=== PATIENT | male | born 2000 | race Caucasian/White ===

== ENCOUNTER 2022-07-24 10:16 | Emergency (ER) | payer OTHER, SELFPAY ==
--- NOTE | 2022-07-24 10:18 | ED.URI ---
HPI - URI/Sore Throat General Chief Complaint: Ear Stated Complaint: Ear Problem Time Seen by Provider: 07/24/22 10:19 Source: patient and RN notes reviewed History of Present Illness HPI Narrative: Patient is a 21-year-old male who presents to urgent care with complaints of bilateral ear pain for the last few days. Patient states that he had COVID recently but has not had any recent fevers in the last 24 hours. Patient has been using Mucinex and Tylenol. No other acute complaints. No acute distress noted. Patient aware of the plan of care. Some parts of this dictation were generated by voice recognition software and may contain typographical and/or grammatical inaccuracies. Related Data Home Medications Medication Instructions Recorded Confirmed ergocalciferol (vitamin D2) 1,250 50,000 unit PO WEEKLY 07/24/22 07/24/22 mcg (50,000 unit) capsule guanfacine 1 mg tablet 1 mg PO TID 07/24/22 07/24/22 methylphenidate HCl 36 mg 36 mg PO DAILY 07/24/22 07/24/22 tablet,extended release 24 hr (Concerta) Allergies Allergy/AdvReac Type Severity Reaction Status Date / Time No Known Allergies Allergy Verified 07/24/22 10:30 Review of Systems Review of Systems: CONSTITUTIONAL: Denies fever, chills, or sweats. EYES: Denies visual changes, redness, or discharge. ENT: Denies rhinorrhea, congestion, sore throat . Reports bilateral otalgia CARDIOVASCULAR: Denies chest pain, palpitations, or edema. RESPIRATORY: Denies cough or dyspnea. GASTROINTESTINAL: Denies abdominal pain, nausea, vomiting, or diarrhea. GENITOURINARY: Denies dysuria or hematuria. SKIN: Denies rash or itching. MUSCULOSKELETAL: Denies back pain, joint pain, or myalgia. NEUROLOGIC: Denies headache, numbness, or weakness. All other systems reviewed are negative, except as documented in HPI. PMFSH Comments At the time of my signature, I reviewed and agree with the nursing past medical, surgical, social, and family history. There is no relevant family history pertinent to the patient complaint. Exam Narrative: GENERAL: This is a well-nourished, well-developed patient, in no apparent distress. HEAD: normocephalic, atraumatic. EYES: PERRL. Sclera clear/white. Vision is grossly intact. EARS: External ears normal, auditory canals clear and without drainage, moderate bilateral eustachian tube dysfunction.TMs normal without perforation. Hearing grossly intact. NOSE: External nose normal with no obvious nasal discharge, nares without redness, no rhinorrhea. THROAT: Mucous membranes moist, posterior pharynx clear. NECK: Neck supple CARDIOVASCULAR: Regular rate and rhythm without murmurs, gallops, or rubs. RESPIRATORY: Clear to auscultation. Breath sounds equal bilaterally. No wheezes, rales, or rhonchi. SKIN: warm, intact with no suspicious lesions or rash, good texture and turgor. NEURO: awake, alert, and oriented to person, place and time. There were no obvious focal neurologic abnormalities. EXTREMITIES: No clubbing, cyanosis, or edema. Course Course Level of Care: Express Care Visit Vital Signs Vital signs: Vital Signs Temperature 97.7 F 07/24/22 10:27 Pulse Rate 93 07/24/22 10:27 Respiratory Rate 16 07/24/22 10:27 Blood Pressure 151/82 H 07/24/22 10:27 Pulse Oximetry 98 07/24/22 10:27 Temperature 97.7 F 07/24/22 10:27 Pulse Rate 93 07/24/22 10:27 Respiratory Rate 16 07/24/22 10:27 Blood Pressure 151/82 H 07/24/22 10:27 Pulse Oximetry 98 07/24/22 10:27 Reviewed- Patient is informed that they may have pre-hypertension or hypertension based on a blood pressure reading in the department. I recommend the patient call the primary care provider listed on their discharge instructions or a physician of their choice this week to arrange follow-up for further evaluation of possible pre-hypertension or hypertension. MDM - URI/Sore Throat MDM Narrative Medical decision making narrative: advised patient to complete
[2022-07-24 10:27] VITALS: BP 151/82; PULSE 93; RESP 16; TEMP 36.5; O2SAT 98
== END 2022-07-24 10:45 | disposition home or self-care (01) ==
PROVIDERS: Emergency Provider Nurse Practitioner Family; PCP Nurse Practitioner Family
DX: H69.83 Other specified disorders of Eustachian tube, bilateral (principal); F98.8 Other specified behavioral and emotional disorders with onset usually occurring in childhood and adolescence
CPT/HCPCS: 99203; G0463

== ENCOUNTER 2023-03-17 18:59 | Emergency (ER) | payer OTHER, SELFPAY ==
[2023-03-17 19:04] VITALS: BP 142/76; PULSE 85; RESP 20; TEMP 36.3; O2SAT 95
--- NOTE | 2023-03-17 19:06 | ED.LOWEXIN ---
HPI - Extremity Injury (Lower) General Chief Complaint: Extremity Injury, Lower Stated Complaint: Fall Injury/Toe Injury Time Seen by Provider: 03/17/23 19:07 Source: patient Mode of arrival: ambulatory Limitations: no limitations History of Present Illness HPI Narrative: 22y/o male presented for c/o left 2nd toenail injury 4 days ago. State he stubbed the toe on the shower and wants to know how to treat the loose nail. Also reports some 'white gunk' under the nail. Denies swelling, redness, or fever. Not taking anything for pain. Has been keeping it covered while at work. Related Data Home Medications Medication Instructions Recorded Confirmed guanfacine 1 mg tablet 1 mg PO TID 07/24/22 07/24/22 methylphenidate HCl 36 mg 36 mg PO DAILY 07/24/22 07/24/22 tablet,extended release 24 hr (Concerta) Allergies Allergy/AdvReac Type Severity Reaction Status Date / Time No Known Allergies Allergy Verified 07/24/22 10:30 Review of Systems Review of Systems: CONSTITUTIONAL: Denies body aches, fever, chills EYES: Denies visual changes ENT: Denies rhinorrhea, congestion CARDIOVASCULAR: Denies chest pain, palpitations, or edema. RESPIRATORY: Denies cough or dyspnea. GASTROINTESTINAL: Denies abdominal pain, nausea, vomiting, or diarrhea. SKIN: Denies rash, itching, or wounds. MUSCULOSKELETAL: Reports loose toenail Denies back pain, joint pain, or myalgia. NEUROLOGIC: Denies headache, numbness, tingling, or weakness. PSYCH: Denies depression or anxiety. All systems reviewed & are unremarkable except as noted in HPI and below PMFSH Past Medical History Medical History (Updated 03/17/23 @ 19:18 by Nidhi Espinosa, ZEINA) No pertinent past medical history Comments At time of signature, I have reviewed and agree with nursing past medical, surgical, social and family history unless otherwise noted. Please see nursing chart for further information. There is no relevant family history pertinent to the presenting complaint Exam Narrative: GENERAL: Well-appearing HEAD: Normocephalic, atraumatic. CHEST: Speaks in full sentences. No respiratory distress. HEART: Regular rate and rhythm. Normal and equal peripheral pulses. EXTREMITIES: Left 2nd toe with slightly loose nail, mostly intact on nailbed. No bleeding or subungual hematoma. Mild onychomycosis. No ingrown nail. Left foot has normal strength and sensation, normal range of motion. No swelling, induration, paronychia, or ecchymosis, No point tenderness to toe. No open wounds, or obvious deformity; alignment normal, pulse palpable and equal bilaterally, skin warm, dry, pink. Capillary refill less than 3 seconds. SKIN: Warm, dry, no rash. NEURO: Alert and oriented x3. PSYCH: Normal mood and affect Course Course Emergency Course: Patient is aware of diagnosis, understands and agrees to treatment plan. Anticipatory guidance given. Patient agrees to follow-up as directed and is aware of reasons to seek care at the emergency department. Portions of this record may have been created with voice recognition software Level of Care: Express Care Visit Vital Signs Vital signs: Reviewed MDM - Extremity Injury (Lower) MDM Narrative Medical decision making narrative: Patient presented requesting information on care for the loose toenail. He is keeping it covered with a Band-Aid and using Neosporin and appears to be taking good care of the site. No apparent signs of infection. Discussed physical exam findings. Advised supportive measures and signs/symptoms to go to the ER. Pt is appropriate for outpt treatment and f/u. Differential Diagnosis Differential diagnosis: Likely fracture of toe and other (ingrown nail, paronychia, loose nail, nail avulsion) Discharge Plan Discharge Clinical Impression: Loose toenail Patient Disposition: Home, Self-Care Condition: Stable Instructions: Nail Avulsion (ED) Additional Instructions: Keep the area rosario
== END 2023-03-17 19:20 | disposition home or self-care (01) ==
PROVIDERS: Emergency Provider Nurse Practitioner Family
DX: L60.8 Other nail disorders (principal)
CPT/HCPCS: 99211; G0463

== ENCOUNTER 2025-01-06 09:47 | Emergency (ER) | payer OTHER, SELFPAY ==
--- NOTE | ~2025-01-06 | XR_ITS ---
EXAMINATION: XR ribs RT 2V DATE: 01/06/2025 10:25 INDICATION: Lateral right lower rib pain after coughing fits with pop one day prior. TECHNIQUE: 3 views of the right ribs were obtained. COMPARISON: None FINDINGS: Mildly displaced posterolateral right ninth rib fracture. Right lung is clear with no airspace opacit ies, pulmonary edema, pleural effusion or pneumothorax. Visualized portion of the cardiomediastinal s ilhouette is unremarkable. IMPRESSION: 1. Mildly displaced posterolateral right ninth rib fracture. No pneumothorax or other acute cardiopul monary disease in the right hemithorax. Reviewed, dictated and finalized at location A. IMPRESSION: 1. Mildly displaced posterolateral right ninth rib fracture. No pneumothorax or other acute cardiopulmonary disease in the right hemithorax.
--- OUTSIDE RECORDS SUMMARY | 2025-01-06 09:53 | XMS_ITS | Referral Summary ---
Author Organization [facility] Address [address] [place] [address] Care Team Providers Care Brick Tester Name Role Phone Sean Rubin MD Primary Care Provider Allergies No known active allergies Medications ibuprofen (ibuprofen) 200 mg tab/cap take 1 capsule by oral route every 6 hours as needed 0 0 7 Active Additional Information Patient not taking.Informant: Self, Reported on 11/27/2022 cholecalciferol (VITAMIN D-3) 5,000 unit tabletIndicatio ns:Vitamin D Deficiency,sund ays Take 5,000 Units by mouth once a week. Active oxyCODONE (ROXICODONE) 5 mg immediate release tabletIndicatio ns:Pain Take 1 tablet (5 mg total) by mouth every 4 (four) hours as needed for pain. 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 Schedule with Dr. Hernandez. Addendum: Scheduled 06/23. 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 Gender Identity Not on file Sexual Orientation Not on file Last Filed Vital Signs Vital Sign Reading Time Taken Comments Blood Pressure 138/80 05/01/2021 2:47 PM CDT Pulse 84 05/01/2021 2:47 PM CDT Temperature 36.9 C (98.4 F) 05/01/2021 2:47 PM CDT Respiratory Rate 15 05/01/2021 2:47 PM CDT Oxygen Saturation 96% 05/01/2021 2:47 PM CDT Inhaled Oxygen Concentration - - Weight 183.7 kg (405 lb) 05/01/2021 2:47 PM CDT Height 194.3 cm (6' 4.5) 05/01/2021 2:47 PM CDT Body Mass Index 48.66 05/01/2021 2:47 PM CDT Plan of Treatment Not on file Insurance [facility] MEDICAID [facility] [id number] [place] [address] MEDICAID [facility] MEDICAID Care Teams Brick Tester Relationship Specialty Start Date End Date Sean Rubin MD PCP - General 10/24/16
--- OUTSIDE RECORDS SUMMARY | 2025-01-06 09:53 | XMS_ITS | Clinical Summary ---
Author Organization [facility] Address [address] [place] [address] Care Team Providers Care Utility Service Worker Name Role Phone Sean Rubin MD Primary Care Provider [phone] Source Comments [facility] Affiliates and Associated Physician Practices is amultiple site organization consisting of ambulatory clinics and hospital sitesin [place], [place] and [place]. This disclosure is being madepursuant to the Care Everywhere program and may not contain all information available regarding this patient. Last updated 18.[facility] Allergies No known active allergies Medications * Be aware that medications may not be up to date on this document. Alwaysverify current medications with the patient. 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 Gender Identity Not on file Sexual Orientation Not on file Last Filed Vital Signs Vital Sign Reading Time Taken Comments Blood Pressure - - Pulse - - Temperature - - Respiratory Rate - - Oxygen Saturation - - Inhaled Oxygen Concentration - - Weight 145.2 kg (320 lb 1.7 oz) 03/18/2016 1:17 PM CDT Height 185.7 cm (6' 1.11) 03/18/2016 1:17 PM CD T Body Mass Index 42.11 03/18/2016 1:17 PM CDT Plan of Treatment Health Maintenance Due Date Last Done Comments HIV SCREENING 2014 HPV VACCINE (1 - Male 3-dose series) 2014 HEPATITIS C SCREENING 09/07/2017 DTAP/TDAP/TD VACCINES (1 - Tdap) 2018 HEPATITIS B VACCINE (1 of 3 - 19+ 3-dose series) 2018 COVID-19 VACCINE (1 - 2023-2 5 season) 2024 DEPRESSION SCREENING 07/27/2024 INFLUENZA VACCINE (Season Ended) 2025 ZOSTER VACCINE (1 of 2) 2049 HIB VACCINE Aged Out No longer eligi ble based on patient's age to complete this topic MENINGOCOCCAL (Group B) VACC INE SHARED DECISION-MAKING Aged Out No longer eligibl e based on patient's age to complete this topic MENINGOCOCCAL GROUPS A/C/Y/W VACCINE Aged Out No longer eligible b ased on patient's age to complete this topic PNEUMOCOCCAL VACCINE Aged Out No long er eligible based on patient's age [place] [address] Care Teams Utility Service Worker Relationship Specialty Start Date End Date Sean Rubin MD [address] [place], [place] [id number] PCP - General 06/17/11
--- OUTSIDE RECORDS SUMMARY | 2025-01-06 09:53 | XMS_ITS | Continuity of Care Document ---
Author Organization [facility] Address [address] [place] [address] Phone Care Team Providers Care Compounding Technician Name Role Phone Conversion MD, Doctor Unavailable Unavailabl e Medications Medication Instructions Dosage Effective Dates (start - stop) Status Comments SODIUM CHLORIDE 0.45% ML 0 DIRECTE - Active 2cc w/.5cc albuterol solution q4hrs prn cough/wheeze ALBUTEROL SULFATE 5MG/ML ML .5 Q 4HR - Active AMOXICILLIN 250MG/5ML ML 7.5 BID - No Longer Active CEFZIL 250MG/5ML ML 5 BID No Longer Active Advance Directives Directive Yes / No Effective Date File Name No Information Encounters Encounter Description Practice Location Reason(s) For Visit Diagnoses Date Provider Providers Copied on Encounter [facility], [address], [place], [place], [address], tel:[phone] Conversion Department No Information 1 Conversion Doctor. [facility] [place], [address], . [facility], [address], [place], [place], [address], tel:[phone] [facility] ASTHMA NOS W (AC) [address]. [address], [address], [place], [place], [address], [place]. tel:[phone] [place], [address], [place], [place], [address], tel:[phone] [facility] ALLERGIC RHINITIS NOS [address] Kashif Martinez. [address] [facility] [address], [place], [place], [address], [place]. tel:[phone] [facility], [address], [place], [place], [address], [place] tel:[phone] [facility] ASTHMA NOS [address]. [address], [address], [place], [place], [address], [place]. tel:[phone] Family History Family Member Type Diagnosis Age At Onset No Information Payers Payer name Insurance type Covered constitution party ID Authoriza tion(s) No Information Social History Type Description Quantity Date Captured Comments Sex Male Smoking Status No Information Chief Complaint And Reason For Visit No Information Reason For Referral Reason For Referral No Information History Of Present Illness Encounter Date Complaint History Of Prese nt Illness No Information Functional Status Date Functional Assessmen t No Information Instructions Date Instruction Additional Infor mation No Information Assessments Type Assessment Date No Information Patient Care Teams Name Effective Dates (start - stop) Status Members No Information
--- OUTSIDE RECORDS SUMMARY | 2025-01-06 09:53 | XMS_ITS | Clinical Summary ---
Author Organization [facility] Address [address] [place] [address] Phone Care Team Providers Care Repair Manager Name Role Phone Gricel Lagunas APRMEDINA Lainez Primary Care Provider [phone] Medications Hydrocort-Pramo xine, Perianal, (Proctofoam HC) 1-1 % Foam 1 Applicator by Rectal route every 12 hours. 50 g Active Social History Tobacco Use Types Packs/Day Years Used Date Smoking Tobacco: Never Smokeless Tobacco: Former Tobacco Cessation:Counseling Given: Not Answered Sex and Gender Information Value Date Recorded Sex Assigned at Not on file Legal Sex Male 11:28 PM CDT Gender Identity Not on file Sexual Orientation Not on file Last Filed Vital Signs Vital Sign Reading Time Taken Comments Blood Pressure 197/85 06/09/2024 5:16 PM GRADUATE RESEARCH ASSISTANT Pulse 62 06/09/2024 5:16 PM GRADUATE RESEARCH ASSISTANT Temperature 36.7 C (98 F) 06/09/2024 5:16 PM GRADUATE RESEARCH ASSISTANT Respiratory Rate 17 06/09/2024 5:16 PM GRADUATE RESEARCH ASSISTANT Oxygen Saturation 98% 06/09/2024 5:16 PM GRADUATE RESEARCH ASSISTANT Inhaled Oxygen Concentration - - Weight 158.8 kg (350 lb) 06/09/2024 5:03 PM GRADUATE RESEARCH ASSISTANT Height 188 cm (6' 2) 06/09/2024 5:03 PM GRADUATE RESEARCH ASSISTANT Body Mass Index 44.94 06/09/2024 5:03 PM GRADUATE RESEARCH ASSISTANT Plan of Treatment Not on [place] [address] [place] [address] Care Teams Repair Manager Relationship Specialty Start Date End Date Lagunas, ZEINA Monsalve, MEDINA [address] [place] [address] PCP - General Family Medicine 06/09/24
--- OUTSIDE RECORDS SUMMARY | 2025-01-06 09:53 | XMS_ITS | Clinical Summary ---
Author Organization [facility] Address [address] [place] [address] Care Team Providers Care Jeep Mechanic Name Role Phone Sean Rubin MD Primary [...] Schedule with Dr. Hernandez. Addendum: Scheduled 06/23. 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 2004 Tooth impaction 05/25/2018 wisdom teeth Obesity Adhd Obstructive sleep apnea 05/25/2018 has not been retested since having tonsills and adenoids removed- no longer snores Family History Medical History Relation Name Comments lupus anticoagulant Mother Relation Name Status Comments Mother Alive Social History Tobacco Use Types Packs/Day Years Used Date Smoking Tobacco: Never Smokeless Tobacco: Never Alcohol Use Standard Drinks/Week Comments No 0 (1 standard drink = 0.6 oz pur e alcohol) Sex and Gender Information Value Date Recorded Sex Assigned at Not on file 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 Gender Identity Not on file Sexual Orientation Not on file Obstetrics History Last Filed Vital Signs Vital Sign Reading [...] 05/01/2021 2:47 PM CDT Plan of Treatment Health Maintenance Due Date Last Done Comments Depression Screening 1999 Hepatitis C Screening 1999 Regular Well Visit/Exam 18-64 2017 DTaP/Tdap/Td Vaccine (7 - Td or Tdap) 09/28/2019 09/27/2009, 07/13/2004, 09/13/2003, Additional history exists Influenza Vaccine (Season Ended) 2025 05/25/2012, 05/14/2010, 04/18/2009 Hepatitis B Screening Completed 04/01/2000 , 1999, 1999 Pneumococcal vaccine <65 Completed 001, 04/01/2000, 01/10/2000 Varicella Vaccines Completed 09/21/2006, 09/29/2000 HPV Vaccines Completed 02/23/2017, 11/0 12/2013, 01/25/2014 Insurance [facility] MEDICAID [facility] MEDICAID [facility] [address] MEDICAID Care Teams Jeep Mechanic Relationship Specialty Start Date End Date Sean Rubin MD PCP - General 10/24/16
[2025-01-06 09:55] VITALS: BP 155/75; PULSE 83; RESP 16; TEMP 36.4; O2SAT 99
--- OUTSIDE RECORDS SUMMARY | 2025-01-06 09:58 | XMS_ITS | Continuity of Care Document ---
Author Organization [facility] Address [address] [place] [address] Phone Care Team Providers Care Dependency Director Name Role Phone Conversion MD, Doctor Unavailable [...] Diagnoses Date Provider Providers Copied on Encounter [facility], [address], [place], [place], [address], tel:[phone] Conversion Department No Information 1 Conversion Doctor. [facility] [place], [address], . [facility], [address], [place], [place], [address], tel:[phone] [facility] ASTHMA NOS W (AC) [address]. [address], [address], [place], [place], [address], [place]. tel:[phone] [employer], [address], [place], [place], [address], tel:[phone] [facility] ALLERGIC RHINITIS NOS [address] Kashif Martinez. [address] [facility] [facility] [address], [place], [place], [address], [place]. tel:[phone] [facility], [address], [place], [place], [address], [place] tel:[phone] [facility] ASTHMA NOS [address]. [address] [facility] [address] [facility], [address], [place], [place], [address], [place]. tel:[phone] Family History Family Member Type Diagnosis Age At Onset No Information Payers Payer name Insurance type Covered green party ID Authoriza tion(s) No Information Social [...]
--- NOTE | 2025-01-06 10:16 | ED.URI ---
HPI - URI/Sore Throat General Chief Complaint: Upper Respiratory Infection Stated Complaint: Cough/Rib Pain/Hurts to Breath Time Seen by Provider: 01/06/25 10:10 Source: patient and RN notes reviewed Mode of arrival: ambulatory Limitations: no limitations History of Present Illness HPI Narrative: Patient presents today complaining of right lower rib pain. He was diagnosed with bronchitis 2 days ago at his PCPs office and got started on azithromycin and a Medrol Dosepak. Yesterday he coughed and felt a pop in his ribs followed by sudden severe pain. He has tried Tylenol and ibuprofen without relief and currently rates his pain 10/10. Reports the rib pain prevented him from sleeping last night. Related Data Home Medications ?Medication ?Instructions ?Recorded ?Confirmed ?Last Taken ?Type guanfacine 1 mg tablet 1 mg PO TID 07/24/22 07/24/22 Unknown History azithromycin 250 mg tablet mg 01/06/25 Unknown History fluoxetine 40 mg capsule mg 01/06/25 Unknown History methylphenidate HCl 18 mg mg PO 01/06/25 Unknown History tablet,extended release 24 hr methylphenidate HCl 27 mg mg PO 01/06/25 Unknown History tablet,extended release 24 hr methylprednisolone 4 mg tablets in mg 01/06/25 Unknown History a dose pack Allergies Allergy/AdvReac Type Severity Reaction Status Date / Time No Known Allergies Allergy Verified 01/06/25 09:58 Review of Systems Review of Systems: CONSTITUTIONAL: Denies body aches, fever, chills, or sweats. EYES: Denies visual changes, redness, or discharge. ENT: Denies rhinorrhea, congestion, sore throat, or otalgia. CARDIOVASCULAR: Denies chest pain, palpitations, or edema. RESPIRATORY: Denies cough or dyspnea. + right rib pain GASTROINTESTINAL: Denies abdominal pain, nausea, vomiting, or diarrhea. GENITOURINARY: Denies dysuria or hematuria. SKIN: Denies rash, itching, or wounds. MUSCULOSKELETAL: Denies back pain, joint pain, or myalgia. NEUROLOGIC: Denies headache, numbness, tingling, or weakness. PSYCH: Denies depression or anxiety. [facility] Past Medical History Medical History No pertinent past medical history Comments At time of signature, I have reviewed and agree with nursing past medical, surgical, social and family history unless otherwise noted. Please see nursing chart for further information. There is no relevant family history pertinent to the presenting complaint Exam Narrative: GENERAL: Well-appearing, well-nourished, and in no acute distress. HEAD: Normocephalic, atraumatic. EYES: EOMI. No redness or drainage. Conjunctivae normal. ENT: Mucous membranes pink and moist. NECK: Normal AROM. CHEST: No respiratory distress. Clear to auscultation. Tenderness the right lateral lower ribs without crepitus, step-off, or other abnormalities. HEART: Regular rate and rhythm. No murmur appreciated. EXTREMITIES: Normal range of motion. No edema. SKIN: Warm, dry, no rash. Capillary refill normal. Normal skin turgor. NEURO: No focal deficits. Alert and oriented x3. Gait steady. PSYCH: Normal affect. No signs of depression or anxiety. Course Course Level of Care: Express Care Visit Vital Signs Vital signs: Vital Signs Temperature 97.5 F L 01/06/25 09:55 Pulse Rate 83 01/06/25 09:55 Respiratory Rate 16 01/06/25 09:55 Blood Pressure 155/75 H 01/06/25 09:55 Pulse Oximetry 99 01/06/25 09:55 Oxygen Delivery Room Air 01/06/25 09:55 Temperature 97.5 F L 01/06/25 09:55 Pulse Rate 83 01/06/25 09:55 Respiratory Rate 16 01/06/25 09:55 Blood Pressure 155/75 H 01/06/25 09:55 Pulse Oximetry 99 01/06/25 09:55 Oxygen Delivery Room Air 01/06/25 09:55 Reviewed MDM - URI/Sore Throat MDM Narrative Medical decision making narrative: X-ray shows mildly displaced right 9th rib fracture. Prescription for [place] and Tessalon Perle sent to pharmacy. Anticipatory guidance given. Differential Diagnosis Differential diagnosis: Likely other (Rib fracture, chest wall strain) Imaging Data Radiologist's impression: ITS Impressions Ribs X-Ray 01/06/25 11:07 IMPRESSION: 1. Mildly displaced posterolateral right ninth rib fracture. No pneumothorax or other acute cardiopulmonary disease in the right hemithorax. Critical Care Time Critical Care Time Critical Care Time: No Discharge Plan Discharge Clinical Impression: Right rib fracture Qualifiers: Encounter type: initial encounter Rib fracture type: single rib Fracture type: closed Qualified Code(s): S22.31XA - Fracture of one rib, right side, initial encounter for closed fracture Patient Disposition: Home Condition: Stable Instructions: Rib Fracture (ED) Additional Instructions: Your x-ray shows a rib fracture. Please continue the medications previously prescribed for you. You may also additionally take ibuprofen. Continue to take deep breaths. Splint your rib fracture with a pill or your hand if you have to cough or sneeze. Do not drive within 6 hours of taking the [place] as it can make you drowsy. Take the Tessalon Perles for cough if needed. Follow-up with your PCP next week if needed. Pain of a rib fracture can persist for several weeks. Your blood pressure was elevated above 120/80 today at Urgent Care. This puts you above the threshold for follow up. Please schedule a followup visit with your personal physician as soon as possible, for further evaluation and treatment. Even blood pressure exceeding 120/80 may indicate pre-hypertension. Patient Language: [place] Prescriptions: New benzonatate 200 mg capsule 200 mg PO TID PRN (Reason: cough) Qty: 20 0RF hydrocodone-acetaminophen 5-325 mg tablet 1 tablet PO Q8H PRN (Reason: pain) Qty: 20 0RF No Action fluoxetine 40 mg capsule azithromycin 250 mg tablet methylprednisolone 4 mg tablets,dose pack methylphenidate HCl 18 mg tablet extended release 24hr PO methylphenidate HCl 27 mg tablet extended release 24hr PO guanfacine 1 mg tablet 1 mg PO TID Follow-up/Referrals: Bebo,Gricel Prado APN [Primary Care Provider] - Time of Disposition: 11:20
== END 2025-01-06 11:26 | disposition home or self-care (01) ==
PROVIDERS: Emergency Provider Nurse Practitioner; PCP Nurse Practitioner Family
DX: R07.89 Other chest pain (principal)
CPT/HCPCS: 71100; 71101; 99213; G0463